=== PATIENT | female | born 1945 | race Caucasian/White ===

== ENCOUNTER 2022-01-03 13:17 | Outpatient (CLI) | payer BC, SELFPAY | END 2022-01-03 13:18 | disposition home or self-care (01) | PROVIDERS: PCP Family Medicine; Visit Provider Surgery | DX: S81.031A Puncture wound without foreign body, right knee, initial encounter (principal); W19.XXXA Unspecified fall, initial encounter; Y93.A1 Activity, exercise machines primarily for cardiorespiratory conditioning; I87.301 Chronic venous hypertension (idiopathic) without complications of right lower extremity | CPT/HCPCS: 99214 ==

== ENCOUNTER 2022-01-12 08:00 | Outpatient (CLI) | payer BC, SELFPAY | END 2022-01-12 08:01 | disposition home or self-care (01) | LOC: WOUND 08:01 | PROVIDERS: PCP Family Medicine; Visit Provider Physician Assistant Surgical | DX: I87.301 Chronic venous hypertension (idiopathic) without complications of right lower extremity (principal); S81.031A Puncture wound without foreign body, right knee, initial encounter | CPT/HCPCS: 99212 ==

== ENCOUNTER 2022-02-12 13:00 | Outpatient (CLI) | payer BC, SELFPAY ==
--- NOTE | 2022-02-12 13:00 | CRLHL7_ITS ---
For Patients: As a result of the Century Cures Act, medical imaging exams and procedure reports are released immediately into your electronic medical record. You may view this report before your referring provider. If you have questions, please contact your health care provider. BILATERAL SCREENING MAMMOGRAM WITH COMPUTER-AIDED DETECTION AND TOMOSYNTHESIS TECHNIQUE: CC and MLO views were obtained. These mammographic images have been obtained using full-field digital technique. These mammographic images were interpreted with the benefit of computer-aided detection. Breast Tomosynthesis was used in this interpretation. COMPARISON FILM: 09/01/20, 03/16/19, 01/01/18 [facility] [place] FINDINGS: The breasts are heterogeneously dense, which may obscure small masses IMPRESSION: There is no radiographic evidence for malignancy. ASSESSMENT: BI-RADS Category 1: Negative RECOMMENDATION: Routine screening mammogram in 1 year. A lay language report of this examination will be provided to the patient. Cal Hernandez M.D. Diagnostic Radiologist [email or web address] [place]/Dictated by: Cal Hernandez MD @ 02/13/2022 1:09:00 PM (Electronically Signed)
== END 2022-02-12 13:01 | disposition home or self-care (01) ==
LOC: MAMMO 13:01
PROVIDERS: PCP Family Medicine; Visit Provider Family Medicine
DX: Z12.31 Encounter for screening mammogram for malignant neoplasm of breast (principal); R92.2 Inconclusive mammogram
CPT/HCPCS: 77063; 77067

== ENCOUNTER 2022-03-07 11:04 | Day surgery (SDC) | payer BC, SELFPAY ==
[2022-03-07] MEDS: KETOROLAC OPHTH 0.5% 1 DROP EYE-LEFT ×2 (11:15→11:20)
[2022-03-07] MEDS: TETRACAINE 0.5% OPHTH 1 DROP EYE-LEFT ×2 (11:15→11:20)
[2022-03-07] MEDS: TETRACAINE 0.5% OPHTH 2 DROP EYE-LEFT (11:27)
[2022-03-07] MEDS: BALANCED SALT IRRIG SOLN 15 ML EYE-LEFT (11:27)
[2022-03-07] MEDS: SODIUM CHLORIDE 0.9 % (FLUSH) 10 ML SYRINGE IVF (11:35)
[2022-03-07 11:37] VITALS: BP 123/79; PULSE 68; RESP 16; TEMP 36.9; O2SAT 100
[2022-03-07 12:35] VITALS: BP 116/67; PULSE 56; RESP 14; TEMP 36.9; O2SAT 97
--- NOTE | 2022-03-07 12:36 | W.ANESCHARGE ---
Anesthesia Charges Start Date/Time Anesthesia Start Date: 03/07/22 Anesthesia Start Time: 12:02 Stop Date/Time Anesthesia Stop Date: 03/07/22 Anesthesia Stop Time: 12:35 Summary Emergency: No Extremes of Age: Over 72-CPT 34073
--- NOTE | 2022-03-07 12:42 | P.PCN_ITS ---
Procedure Note Date Seen: 03/07/22 Will [facility] bill your pro fee for this procedure?: Yes Procedure Description: SURGEON: Stefany Alba MD PREOPERATIVE DIAGNOSIS: Nuclear sclerotic cataract, left eye. POSTOPERATIVE DIAGNOSIS: Nuclear sclerotic cataract, left eye. NAME OF OPERATION: Phacoemulsification of cataract with posterior chamber intraocular lens implantation in the left eye. ANESTHESIA: Topical. ESTIMATED BLOOD LOSS: Less than 2 cc. COMPLICATIONS: None. PATHOLOGY SPECIMEN: None. INDICATIONS: See consult note for details. The risks, benefits and alternatives of the procedure were explained to the patient, who elected to proceed and signed informed consent to do so. PROCEDURE: The patient was brought to the pre-holding area where the left eye was identified as the operative eye. I placed my initials above this eye. The patient received eye drops consisting of 0.5% tetracaine, 1% tropicamide, 10% phenylephrine, and 0.5% ketorolac. The patient was then brought to the operating room where the left eye was again identified as the operative eye. The eye was prepped with Betadine and draped in the usual sterile ophthalmic fashion. A #15 super-sharp blade was used to create a paracentesis site. 1% non-preserved intracameral lidocaine was injected into the anterior chamber. Endocoat was injected into the anterior chamber. A 2.4 mm keratome was used to create a three-plane self-sealing incision 1 mm anterior to the temporal limbus. A cystotome was used to create an anterior capsular leaflet. The Utrata forceps were used to extend this to form a continuous curvilinear capsulorrhexis. Hydrodissection was performed. The cataract was removed with phacoemulsification using the [id number] technique. The irrigation and aspiration tip was used to remove the remaining cortex. Healon was injected into the capsular bag. An JEF ZCB00 intraocular lens of 14.5 diopters was injected into the capsular bag. The irrigation and aspiration tip was used to remove the remaining viscoelastic. Balanced salt solution on a cannula was used to hydrate the wound, and the wound was found to be watertight. The pupil was noted to be round. DISPOSITION: The patient was taken to the recovery room and discharged to home in stable condition. The patient was instructed to call me or go to the emergency department with any sudden change, including dramatic loss of vision, severe pain in the eye or eyebrow region, nausea, or vomiting. The patient will follow up in the clinic tomorrow morning. Surgeon: Stefany Alba MD
--- NOTE | 2022-03-07 13:17 | W.ANESCHARGE ---
Anesthesia Charges Start Date/Time Anesthesia Start Date: 03/07/22 Anesthesia Start Time: 12:02 Stop Date/Time Anesthesia Stop Date: 03/07/22 Anesthesia Stop Time: 12:35 Summary Emergency: No Extremes of Age: Over 72-CPT 35935
== END 2022-03-07 13:03 | disposition home or self-care (01) ==
PROVIDERS: PCP Family Medicine; Visit Provider Ophthalmology
PROC: (CPT 66984; principal; 2022-03-07 11:15)
DX: H25.12 Age-related nuclear cataract, left eye (principal)
CPT/HCPCS: 66984; 142; 99100; A9270; J2250; J3010; V2632

== ENCOUNTER 2022-03-21 06:12 | Day surgery (SDC) | payer BC, SELFPAY ==
[2022-03-21 06:21] VITALS: BP 114/72; PULSE 64; RESP 16; TEMP 36.5; O2SAT 98; BMI 20.1
[2022-03-21] MEDS: TETRACAINE 0.5% OPHTH 1 DROP EYE-RIGHT ×2 (06:30→06:35)
[2022-03-21] MEDS: KETOROLAC OPHTH 0.5% 1 DROP EYE-RIGHT ×2 (06:30→06:35)
[2022-03-21] MEDS: SODIUM CHLORIDE 0.9 % (FLUSH) 10 ML SYRINGE IVF (06:40)
[2022-03-21] MEDS: TETRACAINE 0.5% OPHTH 2 DROP EYE-RIGHT (07:17)
[2022-03-21] MEDS: BALANCED SALT IRRIG SOLN 15 ML EYE-RIGHT (07:22)
--- NOTE | 2022-03-21 07:47 | W.ANESCHARGE ---
Anesthesia Charges Start Date/Time Anesthesia Start Date: 03/21/22 Anesthesia Start Time: 07:13 Stop Date/Time Anesthesia Stop Date: 03/21/22 Anesthesia Stop Time: 07:44 Summary Emergency: No Extremes of Age: Over 72-CPT 66044
--- NOTE | 2022-03-21 07:48 | P.PCN_ITS ---
Procedure Note Date Seen: 03/21/22 Will [facility] bill your pro fee for this procedure?: Yes Procedure Description: SURGEON: Stefany Alba MD PREOPERATIVE DIAGNOSIS: Nuclear sclerotic cataract, right eye. POSTOPERATIVE DIAGNOSIS: Nuclear sclerotic cataract, right eye. NAME OF OPERATION: Phacoemulsification of cataract with posterior chamber intraocular lens implantation in the right eye. ANESTHESIA: Topical. ESTIMATED BLOOD LOSS: Less than 2 cc. COMPLICATIONS: None. PATHOLOGY SPECIMEN: None. INDICATIONS: See consult note for details. The risks, benefits and alternatives of the procedure were explained to the patient, who elected to proceed and signed informed consent to do so. PROCEDURE: The patient was brought to the pre-holding area where the right eye was identified as the operative eye. I placed my initials above this eye. The patient received eye drops consisting of 0.5% tetracaine, 1% tropicamide, 10% phenylephrine, and 0.5% ketorolac. The patient was then brought to the operating room where the right eye was again identified as the operative eye. The eye was prepped with Betadine and draped in the usual sterile ophthalmic fashion. A #15 super-sharp blade was used to create a paracentesis site. 1% non-preserved intracameral lidocaine was injected into the anterior chamber. Endocoat was injected into the anterior chamber. A 2.4 mm keratome was used to create a three-plane self-sealing incision 1 mm anterior to the temporal limbus. A cystotome was used to create an anterior capsular leaflet. The Utrata forceps were used to extend this to form a continuous curvilinear capsulorrhexis. Hydrodissection was performed. The cataract was removed with phacoemulsification using the [id number] technique. The irrigation and aspiration tip was used to remove the remaining cortex. Healon was injected into the capsular bag. An JEF ZCB00 intraocular lens of 14.0 diopters was injected into the capsular bag. The irrigation and aspiration tip was used to remove the remaining viscoelastic. Balanced salt solution on a cannula was used to hydrate the wound, and the wound was found to be watertight. The pupil was noted to be round. DISPOSITION: The patient was taken to the recovery room and discharged to home in stable condition. The patient was instructed to call me or go to the emergency department with any sudden change, including dramatic loss of vision, severe pain in the eye or eyebrow region, nausea, or vomiting. The patient will follow up in the clinic tomorrow morning. Surgeon: Stefany Alba MD
[2022-03-21 07:53] VITALS: BP 119/76; PULSE 48; RESP 16; TEMP 36.7; O2SAT 98
--- NOTE | 2022-03-21 08:22 | W.ANESCHARGE ---
Anesthesia Charges Start Date/Time Anesthesia Start Date: 03/21/22 Anesthesia Start Time: 07:13 Stop Date/Time Anesthesia Stop Date: 03/21/22 Anesthesia Stop Time: 07:44 Summary Emergency: No Extremes of Age: Over 72-CPT 71342
--- NOTE | 2022-03-21 08:27 | SUR.PREOP ---
0620: The eye drops brought by the patient (Ketorolac and Prednisolone) are examined and I have determined they are labeled by the patient's pharmacy for this patient as prescribed by the surgeon. The bottles are intact, recently obtained and appear to be correct.
== END 2022-03-21 08:20 | disposition home or self-care (01) ==
PROVIDERS: PCP Family Medicine; Visit Provider Ophthalmology
PROC: (CPT 66984; principal; 2022-03-21 06:15)
DX: H25.11 Age-related nuclear cataract, right eye (principal)
CPT/HCPCS: 66984; 00142; 99100; A9270; J2250; J3010; V2632

== ENCOUNTER 2023-04-17 10:22 | Outpatient (CLI) | payer MEDICARE, SELFPAY ==
[2023-04-17 10:33] VITALS: BP 116/70; RESP 16; O2SAT 99
[2023-04-17] MEDS: TETRACAINE 0.5% OPHTH 1 DROP EYE-LEFT ×3 (10:40→10:53)
[2023-04-17] MEDS: BRIMONIDINE TARTRATE 0.2% OPHTH 1 DROP EYE-LEFT ×2 (10:40→11:01)
--- NOTE | 2023-04-17 11:26 | P.OPTPRC_ITS ---
Procedure Note Date of procedure: 04/17/23 Will [facility] bill your pro fee for this procedure?: Yes Procedure Description: SURGEON: Stefany Alba MD PREOPERATIVE DIAGNOSIS: Posterior capsular opacity, left eye POSTOPERATIVE DIAGNOSIS: Posterior capsular opacity, left eye PROCEDURE: YAG laser capsulotomy, left eye ANESTHESIA: Topical. ESTIMATED BLOOD LOSS: None PATHOLOGY SPECIMEN: None COMPLICATIONS: None INDICATIONS: See consult note for details. The risks, benefits and alternatives of the procedure were explained to the patient, who elected to proceed and signed informed consent to do so. PROCEDURE: The patient was brought to the pre-holding area where the left eye was identified as the operative eye. I placed my initials above this eye. The patient received 2 sets of 1 drop of 0.5% tetracaine and 1 drop of 1% tropicamide. They also received 1 drop of 0.2% brimonidine. They received 1 drop of 0.5% tetracaine immediately prior to bringing them back for the procedure. The patient was then brought to the procedure room where the left eye was again identified as the operative eye. A YAG Eloy capsulotomy lens was placed on the eye. The laser was administered using a total number of 7 shots with an energy of 2.4 mJ per shot for a total energy of 17 mJ. The patient tolerated the procedure well. DISPOSITION: The patient was taken back to the pre-holding area and given 1 drop of 0.2% brimonidine in the left eye. They were discharged to home in stable condition. The patient was instructed to call me or go to the emergency department with any sudden change, including dramatic loss of vision, severe pain in the eye or eyebrow region, nausea, or vomiting. The patient was instructed to use the 0.2% brimonidine 1 drop 2 times a day in the left eye for 1 week. The patient will follow up in the clinic in 1-2 weeks
== END 2023-04-17 11:03 | disposition home or self-care (01) ==
LOC: EYE PRC 10:23
PROVIDERS: PCP Family Medicine; Visit Provider Ophthalmology
DX: H26.9 Unspecified cataract (principal)
CPT/HCPCS: 66821; A9270